=== PATIENT | female | born 1985 | race American Indian/Alaskan Native ===

== ENCOUNTER 2018-07-27 04:54 | Inpatient (IN) | payer OTHER ==
[2018-07-27 06:47] LABS: Bacteria,Urine 1+ /HPF (Negative); Bilirubin,Urine NEG (Negative); Blood,Urine MOD (Negative); Color,Urine Yellow (Yellow); Mucus,Urine FEW /HPF; Protein,Urine <15 mg/dL mg/dL (Negative); Urobilinogen,Urine < 2.0 mg/dL (<2.0)
[2018-07-27] MEDS ORDERED: LACTATED RINGERS 1,000 ML IV SCH ×2 (07:00→12:00)
[2018-07-27 10:24] LABS: Basophils % (Auto) 0.4 % (0.0-1.8); Eosinophils # (Auto) 0.1 K/mm3 (0.0-0.4); Eosinophils % (Auto) 1.9 % (0.0-4.3); Hematocrit 33.5 % (30.3-42.9); Hemoglobin 11.5 gm/dl (10.1-14.3); Lymphocytes # (Auto) 1.6 K/mm3 (1.2-5.4); Lymphocytes % (Auto) 24.9 % (13.4-35.0); Mean Corpuscular HGB Conc 34 % (30-34); Mean Corpuscular Volume 95 fl (79-97); Monocytes # (Auto) 0.5 K/mm3 (0.0-0.8); Monocytes % (Auto) 7.2 % (0.0-7.3); Platelet Count 102 K/mm3 (140-440); Red Blood Count 3.53 M/mm3 (3.65-5.03); Red Cell Distribution Width 13.7 % (13.2-15.2)
--- NOTE | 2018-07-27 10:59 | Ultrasound Report ---
ULTRASOUND OB LIMITED History: AZUL, PPD, onset of labor Technique: Transabdominal ultrasound with Doppler interrogation. Gestation: Single Position: Cephalic Amniotic Fluid: Decreased AZUL = 6.1 cm Heart Rate: 139 BPM
--- NOTE | 2018-07-27 11:00 | Ultrasound Report ---
ULTRASOUND BIOPHYSICAL PROFILE: History: AZUL, BPP Technique: Transabdominal ultrasound with Doppler interrogation. 2 - breathing movements 2 - movements 2 - posture and tone 2 - Qualitative amniotic fluid volume 8 - TOTAL SCORE OF POSSIBLE 8 Heart Rate (bpm) 141
[2018-07-27] MEDS ORDERED: XYLOCAINE 2% INFILTRATI ONE (11:15)
[2018-07-27] MEDS ORDERED: STADOL IV PRN (11:15)
[2018-07-27] MEDS ORDERED: MINERAL OIL PO PRN (11:15)
[2018-07-27] MEDS ORDERED: BRETHINE SUB-Q PRN (11:15)
[2018-07-27] MEDS ORDERED: BRETHINE IVP PRN (11:15)
[2018-07-27] MEDS ORDERED: ZOFRAN IV PRN ×2 (11:15→20:35)
--- NOTE | 2018-07-27 11:19 | History and Physical Report ---
History of Present Illness Date of examination: 07/27/18 Date of admission: 07/27/18 10:45 History of present illness: Pt is a 32yo BF EDC 07/23/18; EGA 40 4/7 weeks presents to L&D complaining of contractions. She received care at [facility] since 21 weeks and course has been unremarkable. BPP was 8/8 and AZUL 6.1 records are available and GBS is Negative. Past History Past Medical History: no pertinent history Past Surgical History: no surgical history Family/Genetic History: none Social history: no significant social history, single - Obstetrical History Expected Date of Delivery: 07/23/18 Actual Gestation: 40 Week(s) 5 Day(s) : 4 Medications and Allergies Allergies Allergy/AdvReac Type Severity Reaction Status Date / Time No Known Allergies Allergy Verified 07/27/18 06:30 Home Medications Medication Instructions Recorded Confirmed Last Taken Type No Known Home Medications [No 07/27/18 07/27/18 Unknown History Reported Home Medications] Active Meds: Active Medications Lactated Ringer's (Lactated Ringers) 1,000 mls @ 125 mls/hr IV DIRECT ATILIO Last Admin: 07/27/18 08:02 Dose: 125 mls/hr Documented by: Review of Systems All systems: negative - Vital Signs Vital signs: Vital Signs Pulse BP 71 106/69 07/27/18 05:14 07/27/18 05:14 Temp Pulse Resp BP Pulse Ox 97.8 F 64 18 116/77 96 07/27/18 10:12 07/27/18 10:24 07/27/18 10:12 07/27/18 10:24 07/27/18 05:16 - Physical Exam Breasts: Positive: deferred Cardiovascular: Regular rate Lungs: Positive: Clear to auscultation Abdomen: Positive: normal appearance Genitourinary (Female): Positive: normal external genitalia Vagina: Positive: normal moisture Uterus: Positive: enlarged Extremities: Positive: normal - Obstetrical FHR: category 1 Uterine Contraction Monitor Mode: External Cervical Dilatation: 1 (per nurse) Cervical Effacement Percentage: 50 (per nurse) station: -2 Uterine Contraction Pattern: Irregular Uterine Tone Measurement Phase: Contraction Uterine Contraction Intensity: Mild Results Result Diagrams: 07/28/18 08:56 Abnormal lab results 07/27/18 Range/Units 10:05 RBC 3.53 L (3.65-5.03) M/mm3 Plt Count 102 L (140-440) K/mm3 All other labs normal. Ultrasound: report reviewed Assessment and Plan - Patient Problems (1) 40 weeks gestation of Onset Date: 07/27/18 Current Visit: Yes Status: Acute Plan to address problem: A: IUP @ 40 4/7 weeks in early labor Oligohydramnios P: Admit to L&D for expectant vaginal delivery Cervidil/pitocin induction of labor (2) Oligohydramnios in [place] in third trimester Onset Date: 07/27/18 Current Visit: Yes Status: Acute
[2018-07-27] MEDS ORDERED: CERVIDIL VG ONE (12:00)
[2018-07-27] MEDS ORDERED: PITOCin/NS 20 UNIT/1000ML DRIP 20 UNITS/1,000 ML BAG IV SCH ×2 (12:00→21:00)
[2018-07-27] MEDS ORDERED: PITOCin/NS 30 UNIT/500ML 30 UNITS/500 ML BAG IV SCH ×2 (12:00)
[2018-07-27] MEDS: SUBLIMAZE IV PRN ×2 (15:19→18:11)
[2018-07-27] MEDS ORDERED: NORCO 5/325 PO PRN (20:35)
[2018-07-27] MEDS ORDERED: LANSINOH TP PRN (20:35)
[2018-07-27] MEDS ORDERED: BENADRYL PO PRN (20:35)
[2018-07-27] MEDS ORDERED: PHENERGAN PO PRN (20:35)
[2018-07-27] MEDS ORDERED: MILK OF MAGNESIA PO PRN (20:35)
[2018-07-27] MEDS ORDERED: DULCOLAX PR PRN (20:35)
[2018-07-27] MEDS ORDERED: TUCKS PAD TP PRN (20:35)
[2018-07-27] MEDS ORDERED: PHENERGAN PR PRN (20:35)
[2018-07-27] MEDS ORDERED: TYLENOL PO PRN (20:35)
--- NOTE | 2018-07-27 20:38 | Procedure Note ---
OB Delivery Note - Delivery Date of Delivery: 07/27/18 Asset Recovery Specialist: CHRIS SHARMA Estimated blood loss: 300cc - Vaginal Delivery presentation: vertex Delivery position: OA Intrapartum events: meconium (terminal) Delivery induction: none Delivery augmentation: pitocin Delivery monitor: external FHT, external uterine Route of delivery: Delivery cord: 3 umbilical vessels Episiotomy: none Delivery laceration: none Anesthesia: none Delivery comments: Called by RN to come to LDR for imminent delivery live born girl over intact perineum Baby skin to skin on mom's abdomen Cord blood drawn Placenta and membrane del complete and intact 3 vessel cord Pitocin IVFs 8/9, Wgt 6-7 EBL 300. arrived just after delivery. Pt and baby remain LDR stable. - A at 1 minute: 8 at 5 minutes: 9 Gender: Female (wgt 6-7)
[2018-07-27] MEDS ORDERED: SODIUM CHLORIDE FLUSH SYRINGE 10 ML IV PRN (21:00)
[2018-07-28] MEDS: IBUPROFEN PO SCH ×5 (01:42→23:31)
[2018-07-28] MEDS: COLACE PO SCH ×3 (01:43→23:31)
[2018-07-28] MEDS: FEOSOL PO SCH ×3 (01:43→23:31)
--- NOTE | 2018-07-28 09:01 | Progress Note ---
Assessment and Plan - Patient Problems (1) (normal spontaneous vaginal delivery) Onset Date: 07/28/18 Current Visit: Yes Status: Resolved Plan to address problem: A: S/P - PPD #1 Doing well Asymptomatic anemia - stable P: May go home tomorrow. Subjective - Subjective Date of service: 07/28/18 Principal diagnosis: s/p - PPD #1 Interval history: Pt is feeling well without complaints. Bleeding improved. Patient reports: appetite normal, voiding normally, pain well controlled, flatus, ambulating normally, no dizzy ambulation, no nauseated Marshall: doing well, nursing well, bottle feeding Objective - Vital Signs Latest vital signs: Vital Signs Temp Pulse Resp BP Pulse Ox 07/27/18 22:36 98.0 F 54 L 20 106/64 97 07/27/18 21:34 61 110/68 07/27/18 21:24 67 114/61 07/27/18 21:14 72 112/68 07/27/18 21:06 60 108/65 07/27/18 20:44 100 H 127/103 07/27/18 20:34 83 125/90 07/27/18 19:43 71 97 07/27/18 19:41 71 76 L 07/27/18 19:38 73 99 07/27/18 19:33 71 99 07/27/18 19:28 72 99 07/27/18 19:23 72 100 07/27/18 19:18 82 99 07/27/18 19:13 70 100 07/27/18 19:07 81 100 07/27/18 19:02 74 98 07/27/18 18:57 90 99 07/27/18 18:52 73 98 07/27/18 18:47 73 97 07/27/18 18:45 82 94 07/27/18 18:42 64 96 07/27/18 18:37 73 98 07/27/18 18:32 71 97 07/27/18 18:27 69 97 07/27/18 18:22 81 97 07/27/18 18:17 79 97 07/27/18 18:12 77 99 07/27/18 18:07 70 99 07/27/18 18:02 77 98 07/27/18 17:57 67 99 07/27/18 17:52 67 99 07/27/18 17:47 64 99 04/02/19 17:42 73 99 07/27/18 17:37 70 98 07/27/18 17:32 66 100 07/27/18 17:27 73 100 07/27/18 17:22 64 100 07/27/18 17:17 69 100 07/27/18 17:12 70 100 07/27/18 17:07 70 100 07/27/18 17:02 66 100 07/27/18 16:57 69 99 07/27/18 16:52 59 L 99 07/27/18 16:47 63 99 07/27/18 16:45 97.6 F 18 07/27/18 16:44 60 104/65 07/27/18 16:42 70 99 07/27/18 16:37 74 100 07/27/18 16:24 60 97 07/27/18 16:19 61 99 07/27/18 16:14 60 97 07/27/18 16:09 64 99 07/27/18 16:04 57 L 97 07/27/18 16:01 65 94 07/27/18 15:59 66 97 07/27/18 15:54 66 97 07/27/18 15:49 61 97 07/27/18 15:44 62 96 07/27/18 15:39 67 95 07/27/18 15:34 64 97 07/27/18 15:29 66 95 07/27/18 15:27 62 85 07/27/18 15:24 74 98 07/27/18 15:19 81 99 07/27/18 15:14 83 98 07/27/18 15:09 80 98 07/27/18 15:04 76 99 07/27/18 14:59 76 99 07/27/18 14:54 64 97 07/27/18 14:49 65 96 07/27/18 14:44 65 97 07/27/18 14:39 62 96 07/27/18 14:34 65 96 07/27/18 14:29 67 97 07/27/18 14:24 72 97 07/27/18 14:19 73 98 07/27/18 14:14 74 98 07/27/18 14:09 75 97 07/27/18 14:04 83 97 07/27/18 13:59 80 97 07/27/18 13:54 75 98 07/27/18 13:49 73 98 07/27/18 13:44 77 98 07/27/18 13:39 75 97 07/27/18 13:34 79 97 07/27/18 13:29 68 98 07/27/18 12:30 98.3 F 18 07/27/18 12:24 69 115/71 07/27/18 10:24 64 116/77 07/27/18 10:12 97.8 F 18 07/27/18 10:10 67 99/59 Intake and Output 07/27/18 07/28/18 07/28/18 22:59 06:59 14:59 Output Total 1600 Balance -1600 Output: Urine 1600 Void 1600 Other: Total, Output Amount 700 # Voids Void 1 - Exam Breasts: Present: deferred Abdomen: Present: normal appearance, soft Uterus: Present: normal, firm, fundal height below umbilicus Extremities: Present: normal - Labs Labs: Abnormal lab results 07/27/18 Range/Units 10:05 RBC 3.53 L (3.65-5.03) M/mm3 Plt Count 102 L (140-440) K/mm3 Laboratory Tests 07/27/18 07/27/18 07/27/18 06:30 10:05 10:05 WBC 6.6 RBC 3.53 L Hgb 11.5 Hct 33.5 MCV 95 MCH 32 MCHC 34 RDW 13.7 Plt Count 102 L Lymph % (Auto) 24.9 [place] % (Auto) 7.2 Eos % (Auto) 1.9 Baso % (Auto) 0.4 Lymph # 1.6 [place] # 0.5 Eos # 0.1 Baso # 0.0 Seg Neutrophils % 65.6 Seg Neutrophils # 4.3 Urine Color Yellow Urine Turbidity Clear Urine pH 7.0 Ur Specific [place] 1.013 Urine Protein <15 mg/dl Urine Glucose (UA) Neg Urine Ketones Neg Urine Blood Mod Urine Nitrite Neg Urine Bilirubin Neg Urine Urobilinogen < 2.0 Ur Leukocyte Esterase Neg Urine WBC (Auto) 3.0 Urine RBC (Auto) 38.0 U Epithel Cells (Auto) 3.0 Urine Bacteria (Auto) 1+ Urine Mucus Few Blood Type O POSITIVE Antibody Screen Negative 07/28/18 08:56 WBC RBC Hgb 11.1 Hct 31.9 MCV MCH MCHC RDW Plt Count Lymph % (Auto) [place] % (Auto) Eos % (Auto) Baso % (Auto) Lymph # [place] # Eos # Baso # Seg Neutrophils % Seg Neutrophils # Urine Color Urine Turbidity Urine pH Ur Specific [place] Urine Protein Urine Glucose (UA) Urine Ketones Urine Blood Urine Nitrite Urine Bilirubin Urine Urobilinogen Ur Leukocyte Esterase Urine WBC (Auto) Urine RBC (Auto) U Epithel Cells (Auto) Urine Bacteria (Auto) Urine Mucus Blood Type Antibody Screen
[2018-07-28 09:17] LABS: Hematocrit 31.9 % (30.3-42.9); Hemoglobin 11.1 gm/dl (10.1-14.3)
[2018-07-28] MEDS: PRENATAL VITAMIN PO SCH (09:36)
--- NOTE | 2018-07-28 10:24 | Discharge Summary ---
Providers - Providers Date of Admission: 07/27/18 10:45 Date of discharge: 07/29/18 Attending physician: RAYRAY CUNNINGHAM Primary care physician: RAYRAY CUNNINGHAM Hospitalization Reason for admission: induction of labor, rupture of membranes, IUP at term Delivery: Episiotomy: none Laceration: none Other procedures: none complications: none Discharge diagnosis: IUP at term delivered baby: female Hospital course: Unremarkable. Condition at discharge: Good Disposition: DC-01 TO HOME OR SELFCARE - Discharge Diagnoses (1) 40 weeks gestation of Status: Resolved (2) Oligohydramnios in [place] in third trimester Status: Resolved Plan - Discharge Medications Prescriptions: Ferrous Sulfate [Feosol 325 MG tab] 325 mg PO BID #60 tablet Ibuprofen [Motrin 600 MG tab] 600 mg PO Q6H #30 tablet Vit-Fe Fumar-FA [ Vitamin] 1 each PO QDAY #30 tablet - Provider Discharge Summary Activity: routine, no sex for 6 weeks, no heavy lifting 4 weeks, no strenuous exercise Diet: routine Instructions: routine Additional instructions: [] Smoking cessation referral if applicable(refer to patient education folder for contact #) [] Refer to [facility] Booklet Call your doctor immediately for: * Fever > 100.5 * Heavy vaginal bleeding ( >1 pad per hour) * Severe persistent headache * Shortness of breath * Reddened, hot, painful area to leg or breast * Drainage or odor from incision. * Keep incision clean and dry at all times and follow doctor's instructions regarding bathing/showering - Follow up plan Follow up: RAYRAY CUNNINGHAM MD [Primary Care Provider] - 6 Weeks ISAAK CRUM CNM [Advanced Practice Nurse] - 6 Weeks
[2018-07-28] MEDS ORDERED: M-M-R II VACCINE SUB-Q ONE (20:35)
[2018-07-29] MEDS ORDERED: BOOSTRIX IM ONE (06:00)
[2018-07-29] MEDS: IBUPROFEN PO SCH ×2 (06:28→09:22)
[2018-07-29] MEDS: FEOSOL PO SCH (09:22)
[2018-07-29] MEDS: PRENATAL VITAMIN PO SCH (09:22)
[2018-07-29] MEDS: COLACE PO SCH (09:22)
[2018-07-29 12:32] VITALS: BP 106/67
== END 2018-07-29 14:50 | disposition home or self-care (01) | DRG 775 ==
LOC: TRG 04:54 → LD 10:45 → OB 22:34
PROVIDERS: ADMIT Obstetrics & Gynecology; ATTEND Obstetrics & Gynecology
PROC: 10E0XZZ Delivery of Products of Conception, External Approach (ICD-10-PCS; principal; 2018-07-27)
PROC: 3E0234Z Introduction of Serum, Toxoid and Vaccine into Muscle, Percutaneous Approach (ICD-10-PCS; 2018-07-28)
DX: O41.03X0 Oligohydramnios, third trimester, not applicable or unspecified (principal); O77.0 Labor and delivery complicated by meconium in amniotic fluid; Z3A.40 40 weeks gestation of pregnancy; Z37.0 Single live birth; O90.81 Anemia of the puerperium; D64.9 Anemia, unspecified; Z23 Encounter for immunization
CPT/HCPCS: 36415; 76815; 76819; 81001; 85014; 85018; 85025; 86592; 86850; 86900; 86901; G0378; J2590; J3010; J7120